=== PATIENT | female | born 1960 | race Caucasian/White ===

== ENCOUNTER → 2020-02-19 11:42 | Outpatient (CLI) | payer OTHER, SELFPAY ==
--- NOTE | 2020-02-19 | DI.MG.S_ITS ---
BILATERAL DIGITAL SCREENING MAMMOGRAM 3D/2D WITH CAD: 02/19/2020 CLINICAL: Routine screening. Comparison is made to exams dated: 12/23/2018 mammogram, 12/23/2017 mammogram, and 10/22/2016 mammogram - outside location. There are scattered fibroglandular elements in both breasts. Current study was also evaluated with a Computer Aided Detection (CAD) system. No significant masses, calcifications, or other findings are seen in either breast. There has been no significant interval change. IMPRESSION: NEGATIVE There is no mammographic evidence of malignancy. A 1 year screening mammogram is recommended. This exam was interpreted at Station ID: [id number]. NOTE: For mammograms, a report in lay terms will be sent to the patient. Approximately 15% of breast malignancies will not be visualized mammographically. In the management of a palpable breast mass, a negative mammogram must not discourage biopsy of a clinically suspicious lesion. Electronically Signed By: Nikolay renee/james:02/19/2020 15:29:17 letter sent: Normal Exam ACR BI-RADS Category 1: Negative 3341F
== END ==
PROVIDERS: PCP Physician Assistant; Referring Provider Physician Assistant; Visit Provider Physician Assistant
DX: Z12.31 Encounter for screening mammogram for malignant neoplasm of breast (principal)
CPT/HCPCS: 77063; 77067

== ENCOUNTER → 2021-02-22 14:08 | Outpatient (CLI) | payer OTHER, SELFPAY ==
--- NOTE | 2021-02-22 14:10 | DI.MG.S_ITS ---
BILATERAL DIGITAL SCREENING MAMMOGRAM 3D/2D WITH CAD: 02/22/2021 CLINICAL: Routine screening. Comparison is made to exams dated: 02/19/2020 mammogram - [facility], 12/23/2018 mammogram, and 12/23/2017 mammogram - outside location. The tissue of both breasts is heterogeneously dense. This may lower the sensitivity of mammography. Current study was also evaluated with a Computer Aided Detection (CAD) system. There is an irregular equal density focal asymmetry with a spiculated margin in the left breast at 6 o'clock middle depth. This is more prominent and increased in size. No other significant masses, calcifications, or other findings are seen in either breast. IMPRESSION: INCOMPLETE: NEEDS ADDITIONAL IMAGING EVALUATION The irregular equal density focal asymmetry in the left breast is indeterminate. Additional views with possible ultrasound are recommended. This exam was interpreted at Station ID: [id number]. NOTE: For mammograms, a report in lay terms will be sent to the patient. Approximately 15% of breast malignancies will not be visualized mammographically. In the management of a palpable breast mass, a negative mammogram must not discourage biopsy of a clinically suspicious lesion. Electronically Signed By: Millicent alonso/james:02/24/2021 09:12:12 letter sent: Additional Imaging Needed ACR BI-RADS Category 0: Incomplete 3340F
== END ==
PROVIDERS: Referring Provider Internal Medicine; Visit Provider Internal Medicine
DX: Z12.31 Encounter for screening mammogram for malignant neoplasm of breast (principal)
CPT/HCPCS: 77063; 77067

== ENCOUNTER → 2021-03-31 14:01 | Outpatient (CLI) | payer OTHER, SELFPAY ==
--- NOTE | 2021-03-31 | DI.US.S_ITS ---
LIMITED ULTRASOUND OF LEFT BREAST AND AXILLA: 03/31/2021 CLINICAL: Patient returns today to evaluate a focal asymmetry in the left breast. Comparison is made to exams dated: 03/31/2021 mammogram, 02/22/2021 mammogram, 02/19/2020 mammogram - [facility], 12/23/2018 mammogram, 12/23/2017 mammogram, and 10/22/2016 mammogram - outside location. Color flow and real-time ultrasound of the left breast 4-5 o'clock, and axilla regions were performed on the areas of interest. There is a 0.5 cm x 0.4 cm x 0.5 cm oval mass with an indistinct margin in the left breast at 4:30 o'clock posterior depth 9 cm from the nipple. This oval mass is hypoechoic with posterior acoustic shadowing. This correlates with mammography findings. Color flow imaging demonstrates that there is an adjacent vascularity. There also is a 0.8 cm x 0.4 cm x 0.6 cm irregular mass with an indistinct margin in the left breast at 5 o'clock middle depth 6 cm from the nipple. This irregular mass is hypoechoic. This correlates with mammography findings. Color flow imaging demonstrates that there is no vascularity present. Additionally, there is a 0.7 cm lymph node with eccentric cortical thickening in the left axilla. This lymph node is hypoechoic. Color flow imaging demonstrates that there is an adjacent vascularity. IMPRESSION: SUSPICIOUS OF MALIGNANCY The 0.5 cm x 0.4 cm x 0.5 cm oval mass in the left breast at 4:30 o'clock posterior depth is suspicious of malignancy. An ultrasound guided biopsy is recommended. The 0.8 cm x 0.4 cm x 0.6 cm irregular mass in the left breast at 5 o'clock middle depth is suspicious of malignancy. An ultrasound guided biopsy is recommended. The 0.7 cm lymph node with eccentric cortical thickening in the left axilla is suspicious of malignancy. An ultrasound guided biopsy is recommended. The findings were discussed with the patient at the conclusion of the study by Dr. Li. This exam was interpreted at Station ID: [id number]. Electronically Signed By: Nikolay Lerma M.D. ddp/:03/31/2021 15:57:07 letter sent: Biopsy Required Ultrasound BI-RADS: 4 Suspicious for malignancy
--- NOTE | 2021-03-31 | DI.MG.S_ITS ---
UNILATERAL LEFT DIGITAL DIAGNOSTIC MAMMOGRAM 3D/2D WITH ADDITIONAL VIEWS: 03/31/2021 CLINICAL: Additional evaluation requested from prior study. Comparison is made to exams dated: 02/22/2021 mammogram, 02/19/2020 mammogram - [facility], and 12/23/2018 mammogram - outside location. The tissue of left breast is heterogeneously dense. This may lower the sensitivity of mammography. There is a 0.9 cm oval equal density focal asymmetry with an indistinct margin in the left breast at 5 o'clock posterior depth. No other significant masses or calcifications are seen in the breast. IMPRESSION: INCOMPLETE: NEEDS ADDITIONAL IMAGING EVALUATION The 0.9 cm oval equal density focal asymmetry in the left breast is indeterminate. An ultrasound is recommended. Ultrasound will be performed immediately following the current exam. This exam was interpreted at Station ID: [id number]. NOTE: For mammograms, a report in lay terms will be sent to the patient. Approximately 15% of breast malignancies will not be visualized mammographically. In the management of a palpable breast mass, a negative mammogram must not discourage biopsy of a clinically suspicious lesion. Electronically Signed By: Nikolay Lerma M.D. ddp/:03/31/2021 14:54:39 ACR BI-RADS Category 0: Incomplete 3340F
== END ==
PROVIDERS: Referring Provider Internal Medicine; Visit Provider Internal Medicine
DX: R92.8 Other abnormal and inconclusive findings on diagnostic imaging of breast (principal); N63.23 Unspecified lump in the left breast, lower outer quadrant; R59.0 Localized enlarged lymph nodes
CPT/HCPCS: 76642; 77065; G0279

== ENCOUNTER → 2021-04-22 09:34 | Outpatient (CLI) | payer OTHER, SELFPAY ==
--- NOTE | 2021-04-22 | DI.US.S_ITS ---
ULTRASOUND GUIDED BIOPSY LEFT BREAST WITH MARKING DEVICE INSERTED: 04/22/2021 CLINICAL: Two left breast masses. PATIENT CONSENT: Risks (minor bleeding, infection, vasovagal reaction and repeat procedure), benefits and alternatives were explained to the patient and written informed consent was obtained. Correlation is made to exams dated: 04/22/2021 mammogram, 03/31/2021 ultrasound, 03/31/2021 mammogram, 02/22/2021 mammogram, 02/19/2020 mammogram - [facility], and 12/23/2018 mammogram - outside location. An ultrasound guided biopsy using real-time ultrasound was performed for the lymph node located in the left axillary tail. The skin was prepped in the usual manner. Local anesthetic was administered to the access site. A small incision was made in the breast. The abnormality was approached from the lateral aspect. A biopsy needle was placed adjacent to the abnormality under ultrasound guidance. Once the needle was documented to be in the correct location, four specimens were obtained using a BARD biopsy device. A clip was inserted into the biopsy cavity. The specimens were sent to the laboratory for pathological analysis. IMPRESSION: ULTRASOUND GUIDED BIOPSY MALIGNANT Ultrasound guided biopsy of the lymph node in the left axilla was successful. 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 Pathology results are concordant with imaging findings. A surgical/oncologic consultation is recommended. This exam was interpreted at Station ID: [id number]. Dominic jolley,aty/:04/29/2021 19:04:03
--- NOTE | 2021-04-22 | DI.US.S_ITS ---
MULTIPLE ULTRASOUND GUIDED BIOPSIES LEFT BREAST USING VACUUM DEVICE WITH MARKING DEVICES INSERTED: 04/22/2021 CLINICAL: Left axillary node biopsy. PATIENT CONSENT: Risks (minor bleeding, infection, vasovagal reaction and repeat procedure), benefits and alternatives were explained to the patient and written informed consent was obtained. Correlation is made to exams dated: 04/22/2021 mammogram, 03/31/2021 ultrasound, 03/31/2021 mammogram, 02/22/2021 mammogram, 02/19/2020 mammogram - [facility], and 12/23/2018 mammogram - outside location. An ultrasound guided biopsy using real-time ultrasound was performed for the mass located in the left breast at 4:30 o'clock posterior depth. The skin was prepped in the usual manner. Local anesthetic was administered to the access site. The abnormality was approached from the lateral aspect. A biopsy needle was placed adjacent to the abnormality under ultrasound guidance. Once the needle was documented to be in the correct location, seven specimens were obtained using the Mammotome biopsy system. The patient received additional local anesthetic during the procedure. A Celero clip was inserted into the biopsy cavity. The specimens were sent to the laboratory for pathological analysis. A second ultrasound guided biopsy using real-time ultrasound was performed for the mass located in the left breast at 5 o'clock posterior depth. The skin was prepped in the usual manner. Local anesthetic was administered to the access site. A small incision was made in the breast. The abnormality was approached from the lateral aspect. A biopsy needle was placed adjacent to the abnormality under ultrasound guidance. Once the needle was documented to be in the correct location, six specimens were obtained using the Mammotome biopsy system. A Visionnaire clip was inserted into the biopsy cavity. The specimens were sent to the laboratory for pathological analysis. IMPRESSION: ULTRASOUND GUIDED BIOPSY MALIGNANT Ultrasound guided biopsy of the mass in the left breast at 4 o'clock posterior depth was successful. Pathology indicates malignant invasive ductal carcinoma (ID). Pathology results are concordant with imaging findings. A surgical/oncologic consultation is recommended. Ultrasound guided biopsy of the mass in the left breast at 5 o'clock posterior depth was successful. Pathology indicates malignant invasive ductal carcinoma (ID). Pathology results are concordant with imaging findings. A surgical/oncologic consultation is recommended. This exam was interpreted at Station ID: [id number]. Dominic jolley,aty/:04/29/2021 19:02:10
--- NOTE | 2021-04-22 | PATH_ITS ---
[facility] Accession Number: [id number] . 01 Material submitted: . PART A: breast - LEFT BREAST MASS 4:30 9 CMFN PART B: breast - LEFT BREAST MASS 5:00 6 CMFN PART C: lymph node - LEFT AXILLA LYMPHNODE . 01 Clinical history: . LEFT BREAST MASS . 01 Diagnosis: A. Left Breast, Mass at 4:30, 9 cm from Nipple, Image-Guided Core Biopsy: Invasive ductal carcinoma, grade 2 out of 3. -Kyle score: 6 out of 9 possible (histologic = 3, nuclear = 2, mitotic rate = 1). -In situ carcinoma: Not identified. -Lymphovascular invasion: Not identified. -Greatest linear dimension of invasive carcinoma: 0.6 cm, as measured from the glass slide. -Predictive markers: Estrogen and progesterone receptors positive and HER2 negative for overexpression by immunohistochemistry (see comment for complete parameters). . B. Left Breast, Mass at 5 o'clock, 6 cm from Nipple, Image-Guided Core Biopsy: Invasive ductal carcinoma, grade 3 out of 3. -Kyle score: 9 out of 9 possible (histologic = 3, nuclear = 3, mitotic rate = 3). -In situ carcinoma; Not identified. -Lymphovascular invasion: Not identified. -Greatest linear dimension of invasive carcinoma: 0.8 cm, as measured from the glass slide. -Predictive markers: Estrogen and progesterone receptors positive and HER2 negative for overexpression by immunohistochemistry (see comment for complete parameters). . C. Lymph Node, Left Axilla, Image-Guided Core Biopsy: Metastatic ductal carcinoma. -Maximum linear dimension of carcinoma: 0.7 cm, as measured from the glass slide. -Extracapsular invasion: Not identified. [facility] 04/25/2021 1602 Local . 01 Comment: The results of this case are verbally provided by Dr. Moore to Dr. Louis on 04/24/2021 at 5:20 p.m. . *Immunostains to e-cadherin and beta-catenin are performed on blocks A1, B1, and C1, with the controls stained appropriately. All stains show uniform expression, strongly supporting a ductal subtype of mammary carcinoma as opposed to lobular. . Predictive marker immunohistochemical studies are performed on block A1 with the invasive carcinoma showing the following results: . Estrogen receptor (SP1): Positive (greater than 90%, strong intensity). Progesterone receptor (1E2): Positive (greater than 90%, strong intensity). Her2 (4B5): Negative for overexpression (1+). . Predictive marker immunohistochemical studies are performed on block B1 with the invasive carcinoma showing the following results: . Estrogen receptor (SP1): Positive (greater than 90%, strong intensity). Progesterone receptor (1E2): Positive (greater than 90%, strong intensity). Her2 (4B5): Negative for overexpression (0). . . Internal controls for estrogen and progesterone receptors for block A1 are not present, and for block B1 are positive. Cold ischemic time is <5 minutes. The scoring criteria for breast biomarkers by immunohistochemistry is based on the ASCO/CAP guidelines (Arturo AC et al, J Clin Oncol: 2018 Feb 22;36(20):9295-8167 and Solomon ME et al, Arch Pathol Lab Med: 2009;134(6):907-22). Deparaffinized sections of formalin fixed tissue (along with appropriate positive controls) are incubated with the above antibody(s). Using the automated [place] stainer, tissue is incubated with the designated antibody which is then localized by a non-biotin, dual polymer detection system. The external controls are reviewed for appropriate reactivity and found to be adequate. Results on the target cell population are indicated above. These tests have not been validated on decalcified tissue. This test was developed and its performance characteristics determined by [employer]. It has not been cleared or approved by the U.S. Food and Drug Administration. The FDA has determined that such clearance or approval is not necessary. This test is used for clinical purposes. It should not be regarded as investigational or for research. . 01 Electronically signed: . Basilia Moore MD, Pathologist NPI- [id number] . 01 Gross description: . A. Received in formalin, labeled left breast 4:30, 9 cm from nipple consists of multiple antonio-yellow fragments of fibroadipose tissue measuring 2.0 x 0.8 x 0.2 cm in aggregate. The specimen is filtered and entirely submitted in cassette A1. B. Received in formalin, labeled left breast 5 o'clock, 6 cm from nipple and consists of multiple antonio-yellow cores of fibroadipose tissue measuring 2.5 x 2.5 x 0.3 cm in aggregate. The specimen is entirely submitted in cassette B1. C. Received in formalin, labeled left axilla lymph node consists of four antonio-white cores of soft tissue ranging from 0.4-1.0 cm in length by 0.1 cm in diameter. The specimen is entirely submitted in cassette C1. . Formalin fixation time: Approximately 28 hours. ([id number]) /MRV 04/23/2021 1012 Local . 01 Pathologist provided ICD-10: C50.912 . 01 CPT . 780874, 720775, 640491, 309770, 841063, 328397, [id number], C36616, 677620, [id number], [id number] Performed at: 01 [facility] [address] [place] [address], [place], [place] [id number] MD Nikolay Almendarez MD Phone: [phone]
--- NOTE | 2021-04-22 | DI.MG.S_ITS ---
UNILATERAL LEFT DIGITAL DIAGNOSTIC MAMMOGRAM 3D/2D POST-NEEDLE BIOPSY: 04/22/2021 CLINICAL: Post clip placement. Left breast mass. Comparison is made to exams dated: 03/31/2021 ultrasound, 02/22/2021 mammogram, 02/19/2020 mammogram - [facility], and 12/23/2018 mammogram - outside location. The tissue of left breast is heterogeneously dense. This may lower the sensitivity of mammography. There is a marker clip in the appropriate position in the left axillary tail. This marker clip placement is at the biopsy site. There also is a marker clip in the appropriate position in the left breast at 5 o'clock This marker clip placement is at the biopsy site. Additionally, there is a marker clip in the appropriate position in the left breast at 4 o'clock This marker clip placement is at the biopsy site. IMPRESSION: POST PROCEDURE MAMMOGRAM FOR MARKER PLACEMENT There was a successful marker clip placement in the left axillary tail. There was a successful marker clip placement in the left breast at 5 o'clock There was a successful marker clip placement in the left breast at 4 o'clock This exam was interpreted at Station ID: [id number]. NOTE: For mammograms, a report in lay terms will be sent to the patient. Approximately 15% of breast malignancies will not be visualized mammographically. In the management of a palpable breast mass, a negative mammogram must not discourage biopsy of a clinically suspicious lesion. Electronically Signed By: Dominic jolley/:04/30/2021 13:47:50 ACR BI-RADS Category Post-procedure mammogram for marker placement
== END ==
PROVIDERS: PCP Physician Assistant; Referring Provider Internal Medicine; Visit Provider Internal Medicine
DX: C50.512 Malignant neoplasm of lower-outer quadrant of left female breast (principal); C77.3 Secondary and unspecified malignant neoplasm of axilla and upper limb lymph nodes; Z17.0 Estrogen receptor positive status [ER+]
CPT/HCPCS: 19083; 19084; 38505; 76882; 76942; 77065